=== PATIENT | male | born 1940 | race Caucasian/White ===

== ENCOUNTER 2017-04-24 10:37 | Emergency (ER) | payer BC, OTHER ==
[2017-04-24 11:05] VITALS: BP 129/68
--- NOTE | 2017-04-24 14:28 | ERNOTE ---
Back Pain ER HPI Time Seen by Provider: 04/24/17 14:17 Source: patient Exam Limitations: no limitations Allergies/Adverse Reactions: Allergies No Known Allergies Allergy (Verified 04/24/17 11:05) Home Medications: HOME MEDICATIONS Levothyroxine Sodium [Synthroid] 125 mcg PO DAILY 04/24/17 [Last Taken Unknown] Narrative: Patient tripped and fell against a cement step injuring his left chest. He hurt his right arm and head as well, but those symptoms have subsided. He still has pain in his left sided with deep breath and coughing. He felt a little short of breath this morning, those symptoms have resolved since, he continues to be very active, has been lifting flower pots and 50lbs bags Date (Duration): 04/20/17 Review of Systems - Review of Systems Constitutional: Absent: recent illness EYE: Absent: double vision ENT: Absent: nose congestion, sore throat Respiratory: Absent: shortness of breath, cough Cardiology: Present: See HPI Gastrointestinal/Abdominal: Absent: nausea, abdominal pain Genitourinary: Present: no symptoms reported Musculoskeletal: Present: See HPI Skin: Absent: rash Neurological: Absent: weakness, numbness - Patient's Past Medical History Patient History - Medical: Hypothyroidism Patient History - Cardiac/Respiratory: No pertinent hx Patient History - Cancer: No Hx of Cancer Patient History - Surgical Procedures: No surgical history Patient History - Other: None - Social History Living Situations: home Psych History: No pertinent hx Alcohol Use: none Drug Use: none Physical Exam - Physical Exam General Appearance: Present: wd/wn, alert, no apparent distress Head Exam: Present: normal inspection, no evidence of injury Respiratory: Present: no respiratory distress, normal breath sounds, no accessory muscle use, lungs clear, chest tenderness - left lateral rib point tenderness, no echymosis, no deformity Cardiovascular/Chest: Present: regular rate, rhythm, no murmur Back Exam: Present: normal inspection, no vertebral tenderness Neurological Exam: Present: alert, oriented, normal mood/affect Skin Exam: Present: normal color, warm/dry ED Progress - Vital Signs Patient's Vital Signs:: I have reviewed the patient's vital signs. Vital Signs: Vital Signs 04/24/17 10:59 Temperature 36.2 C L Pulse Rate 62 Respiratory 12 Rate Blood Pressure 129/68 O2 Sat by Pulse 100 Oximetry - X-Ray X-Ray #1 X-Ray: ribs - left arabella rib fracture Interpretation: Reviewed by me - Progress/Reassessment Chief Complaint: Back Pain Departure Clinical Impression: Left rib fracture Qualifiers: Encounter type: initial encounter Rib fracture type: single rib Fracture type: closed Qualified Code(s): S22.32XA - Fracture of one rib, left side, initial encounter for closed fracture - Departure Disposition: Home self-care Condition: Good Instructions: Rib Fracture, [id number] Additional Instructions: take tylenol and ibuprofen as needed for pain make sure to take a deep breath a few times a day Referrals: Rosalio Castano MD [Primary Care Provider] -
== END 2017-04-24 14:29 | disposition home or self-care (01) ==
LOC: ER 10:37
DX: S22.32XA Fracture of one rib, left side, initial encounter for closed fracture (principal); E03.9 Hypothyroidism, unspecified